=== PATIENT | female | born 1985 | race Caucasian/White ===

== ENCOUNTER 2017-05-16 16:12 | Emergency (ER) | payer BC ==
[2017-05-16 17:18] VITALS: BMI 21.2
[2017-05-16] MEDS ORDERED: Lactated Ringer's 1,000 ML IV SCH (17:20)
[2017-05-16 17:57] LABS: BASO % 0.1 % (0.0-2.0); EOS % 0.3 % (0.0-4.0); LYMPH # 1.1 K/uL (1.0-4.3); MEAN PLATELET VOLUME 9.3 fl (7.2-11.7); MONO # 0.9 K/uL (0.0-0.8); MONO % 7.1 % (0.0-10.0); NEUT # 10.1 K/uL (1.8-7.0); NEUT % 83.5 % (50.0-75.0); PLATELET COUNT 176 K/uL (130-400); RED CELL DISTRIBUTION WIDTH 12.7 % (11.5-14.5)
[2017-05-16 18:02] LABS: ALB/GLOB RATIO 1.1 (1.0-2.1); ALKALINE PHOSPHATASE 93 U/L (38-126); ALT/SGPT 21 U/L (9-52); AST/SGOT 21 U/L (14-36); BILIRUBIN,TOTAL 0.3 mg/dl (0.2-1.3); BLOOD UREA NITROGEN 5 mg/dl (7-17); CALCIUM 9.2 mg/dL (8.4-10.2); CARBON DIOXIDE 20 mmol/L (22-30); CHLORIDE 103 mmol/L (98-107); GFR AFRICAN-AMERICAN > 60; GLUCOSE,RANDOM 104 mg/dL (65-105); POTASSIUM 3.6 MMOL/L (3.6-5.0); SODIUM 135 mmol/l (132-148); TOTAL PROTEIN 7.5 G/DL (6.3-8.2)
[2017-05-16 19:30] LABS: RBC URINE 2 /hpf (0-3); URINE BACTERIA RARE (<OCC); URINE BILIRUBIN NEGATIVE (NEGATIVE); URINE BLOOD LARGE (NEGATIVE); URINE COLOR YELLOW (YELLOW); URINE GLUCOSE (UA) NEG (Normal); URINE KETONE NEGATIVE (NEGATIVE); URINE LEUKOCYTE ESTERASE LARGE Leu/uL (Negative); URINE PROTEIN 30 mg/dL (NEGATIVE); URINE UROBILINOGEN 0.2-1.0 mg/dL (0.2-1.0); WBC URINE 29 /hpf (0-5)
--- NOTE | 2017-05-16 20:10 | US ---
EXAM: US , Transvaginal CLINICAL HISTORY: 31 years old, female; Signs and symptoms; Lmp or gestational age (in weeks): 28 weeks & 2d; Other: Fever; ; Additional info: Contractions at 28+ wks TECHNIQUE: Real-time transvaginal obstetrical ultrasound of the maternal pelvis and a first trimester with image documentation. Transvaginal imaging was used for better evaluation of the fetus and adnexa. COMPARISON: No relevant prior studies available. FINDINGS: Evaluation of the pelvis reveals a single intrauterine with a breech presentation. The placenta is anterior fundal and free of the cervical os. The cervix measures 5.8 cm in length and is closed. measurements correspond to an estimated gestational age of 28 weeks 2 days. cardiac activity is identified with a heart rate of 150 beats per minute. IMPRESSION: Limited study of single live IUP as above.
[2017-05-16 20:37] LABS: NEUTROPHIL 92 % (42-75); TOTAL CELLS COUNTED 100
[2017-05-16 20:38] LABS: LARGE PLATELETS PRESENT
--- NOTE | 2017-05-16 20:44 | OBHP ---
Datetime: 05/16/2017 18:04 IP Adm Impression: , intrauterine IP Admit Plan: Observation/Evaluation Admit Comment, IP Provider: 31 yo G1 at 28+6 wks w/ EDC 08/02/2017, reports that she has had a low g rade fever since Wednesday, "turned into a cough and cold," went to 101.8 this am. Pt received her pre care w/ Dr. Bermudez. Pt reports that her temperature was 101.7 in ED today. Pt also c/o low back pain since this am, also reports heaviness in abdomen today. Pt denies VB and LOF, reports FM. Pt also reports freq urination, tingling w/ urination. PMH: Healthy PSH: Partial thyroidectomy for cyst on thyroid All: ear drops -> rashes Meds: PNVs [place] Hand hx: regular, no STDs, no abn paps Soc hx: Pt denies tobacco, alcohol, and illicit drug use Fam hx: M-DM, GDM, HTN , cholesterol, needed a cerclage M aunts- had premature babies PE: Gen'l pt appears comfortable in stretcher, non-toxic Abd: soft, NT, gravid Ext: NT Spec: FFN done VE: closed/ long/ -3 A/P: 31 yo G1 at 28+6 wks w/ fever, recent cough and cold sx, NST reactive Pt given IVF, labs drawn, Ua and cx sent CBC, CMP nl. Ua w/ blood (collected after vaginal exam ). Urine cx sent. U/s: CL 5.8cm, closed- FFN discarded Pt feeling better after receiving 2 liters of LR. Pt discharged home w/ PTL precautions. Pt told to go to the ED or f/u w/ APPLICATION SUPPORT TECHNICIAN for cough and cold. Extremities - PN: Normal Abdomen - PN: Normal Back - PN: Normal Neurologic - PN: Normal General - PN: Normal FHR - Baseline A Provider: 150 Membranes, Provider: Intact Contraction Comments Provider: irregular EGA AdmitDate IP: 28.6 Vital Signs Provider: Reviewed IP Chief Complaint: Maternal discomfort NICHD Variability Prov Fetus A: Moderate 6-25bpm NICHD Accel Fetus A IP Provider: 10X10 FHR Category Provider Fetus A: Category I NICHD Decel Fetus A IP Provider: None Dilatation, Provider: 0 Effacement, Provider: 0 Station, Provider: -3 Genitourinary Exam: Normal
--- NOTE | 2017-05-16 20:47 | OBDCSUM ---
Datetime: 05/16/2017 20:33 Discharged to, Provider: Home Follow up at, Provider: Vikram eBrmudez Disch Instr Activity: Normal activity Disch Instr Diet: Regular Discharge Time: 05/16/2017 20:34 Follow up in weeks, Provider: 4 days Disch Referrals: None Disch Activity Restrictions: No exercising; No lifting; No driving; No sexual activity; Nothing in v agina - [place], tampons, douche Discharge Diagnosis Prov Other: contractions at 28+6 wks
[2017-05-17 04:40] VITALS: BP 104/67; PULSE 93; RESP 16; TEMP 99.9; O2SAT 100
== END 2017-05-16 20:40 | disposition home or self-care (01) ==
LOC: H.EROB2 16:12 → H.EROB 17:09 → H.EROB2 20:40
DX: O47.03 False labor before 37 completed weeks of gestation, third trimester (principal); Z3A.28 28 weeks gestation of pregnancy
CPT/HCPCS: 76817; 80053; 81003; 85025; 87086; 99284; J7120

== ENCOUNTER 2017-05-18 15:15 | Emergency (ER) | payer BC ==
[2017-05-18 15:56] VITALS: BMI 24.7
[2017-05-18 17:44] LABS: URINE BACTERIA FEW (<OCC); URINE BILIRUBIN NEGATIVE (NEGATIVE); URINE BLOOD LARGE (NEGATIVE); URINE COLOR YELLOW (YELLOW); URINE GLUCOSE (UA) NEG (Normal); URINE KETONE NEGATIVE (NEGATIVE); URINE LEUKOCYTE ESTERASE LARGE Leu/uL (Negative); URINE PROTEIN 100 mg/dL (NEGATIVE); URINE UROBILINOGEN 0.2-1.0 mg/dL (0.2-1.0)
[2017-05-18 17:49] LABS: WBC URINE 43 /hpf (0-5)
[2017-05-18 17:50] LABS: RBC URINE 35 /hpf (0-3)
--- NOTE | 2017-05-18 19:08 | US ---
PROCEDURE: Ultrasound of the Kidneys HISTORY: Hematuria. Twenty-nine weeks COMPARISON: None available. TECHNIQUE: Sonogram of the kidneys. FINDINGS: RIGHT KIDNEY: Measures: 4.1 x 5.3 x 11.4 cm. Normal in size, contour and echogenicity. Mild-moderate hydronephrosis. LEFT KIDNEY: Measures: 3.4 x 4.4 x 10.1 cm. Normal in size, contour and echogenicity. No stone, solid mass lesion or hydronephrosis visualized. OTHER FINDINGS: None. IMPRESSION: Unilateral hydronephrosis right side only. This would be categorized as mild and consistent with 3rd term .
[2017-05-18 23:13] VITALS: PULSE 83; TEMP 99.1
--- NOTE | 2017-05-19 00:43 | OBHP ---
Datetime: 05/18/2017 16:01 IP Adm Impression: , intrauterine ; No Active Labor; Intact Membranes IP Admit Plan: Observation/Evaluation Admit Comment, IP Provider: 31yo IUP at 29w c/o abd heaviness x 1d...some back pain (lumabr/sac ral - muscular)...subjective feeeling of fever (not measured). No SROM. +FM. No CTX. No VB PNC: CP Dr Bermudez - chart rev'd PMH: denies PSH: Thyroid surgery Allergy ear drops PSoH: denies smoking; ETOH drugs A: IUP at 29w abd pain / threatened PTL ?UTI PLAN: Chekc UA FFN; will give Tylenol Pelvic Type - PN: Adequate Extremities - PN: Normal Abdomen - PN: Normal Back - PN: Normal Breast - PN: Not Done Lungs - PN: Normal Heart - PN: Normal Thyroid - PN: Normal Neurologic - PN: Normal HEENT - PN: Normal General - PN: Normal FHR - Baseline A Provider: 150 Membranes, Provider: Intact Comments, ACOG Physical Exam: No CVA tenderness ROS: General: no weakness; no fatigue HEENT: no WOODY; no visual dist CV: no palpitations; no no CP GI: no N/V no diarhea : some F/no U/+ D MS: No joint pain Pool Provider: Negative IP Hx Assessment: The History has been Reviewed and is Current EGA AdmitDate IP: 29.1 IP Chief Complaint: Maternal discomfort NICHD Variability Prov Fetus A: Moderate 6-25bpm NICHD Accel Fetus A IP Provider: 15X15 FHR Category Provider Fetus A: Category I NICHD Decel Fetus A IP Provider: None Dilatation, Provider: 0 Effacement, Provider: 0 Genitourinary Exam: Normal DTRs - PN: Normal
--- NOTE | 2017-05-19 00:45 | OBDCSUM ---
Datetime: 05/18/2017 19:01 Discharged to, Provider: Home Follow up at, Provider: Dr. Bermudez Disch Instr Activity: Normal activity Disch Instr Diet: Regular Discharge Diagnosis, Provider: False Labor - Undelivered Discharge Time: 05/18/2017 19:02 Follow up in weeks, Provider: as scheduled Disch Referrals: None Discharge Comment, Provider: UA + urine culture done...will give Cephalexin 500mg po TID x 7d; FFN n eg
== END 2017-05-18 19:12 | disposition home or self-care (01) ==
LOC: H.EROB2 15:15
DX: O47.03 False labor before 37 completed weeks of gestation, third trimester (principal); Z3A.29 29 weeks gestation of pregnancy

== ENCOUNTER 2017-08-09 14:53 | Inpatient (IN) | payer BC, OTHER ==
--- NOTE | 2017-08-09 16:22 | OBHP ---
Datetime: 08/09/2017 16:13 IP Adm Impression: Term, intrauterine ; Active labor IP Admit Plan: Admit to unit; Initiate labor protocol Admit Comment, IP Provider: 32yo with IUP at 41wks, reports here c/o intermittent contraction p ain most of which is felt on the back. She denies VB or LOF and feels good movement. She report s passing mucus the quantity of which have increased for the past [address] Bermudez. Pt had been schedued for IOL this evening. [place]- Q 3-5 FHR- Category 1, CX- 2-50/-2, Vtx felt. GBS- negative on the records. Assessment: IUP at 41 weeks Early Labor. Plan: Admit to LND Observe for the progress of labor. Dr Bermudez Notified. Pelvic Type - PN: Adequate Extremities - PN: Normal Abdomen - PN: Normal Back - PN: Normal Breast - PN: Normal Lungs - PN: Normal Heart - PN: Normal Thyroid - PN: Normal Neurologic - PN: Normal HEENT - PN: Normal General - PN: Normal Presentation-Admit: Vertex FHR - Baseline A Provider: 130s Membranes, Provider: Intact Contraction Comments Provider: Q 3-5 Comments, ACOG Physical Exam: Abd: Soft, NT, BS present Gestation - Est Wks by US: 41.0 EGA AdmitDate IP: 41.0 IP Chief Complaint: Uterine contractions; Maternal discomfort NICHD Variability Prov Fetus A: Minimal - Undetectable to <5bpm NICHD Accel Fetus A IP Provider: 15X15 FHR Category Provider Fetus A: Category I NICHD Decel Fetus A IP Provider: None Dilatation, Provider: 2-3 Effacement, Provider: 50 Station, Provider: -2 Genitourinary Exam: Normal DTRs - PN: Normal
[2017-08-09 16:30] VITALS: BMI 22.5
[2017-08-09] MEDS ORDERED: Lactated Ringer's 1,000 ML IV SCH (16:30)
--- NOTE | 2017-08-09 16:37 | OBADHP ---
Datetime: 08/09/2017 16:13 Admit Comment, IP Provider: 32yo with IUP at 41wks, reports here c/o intermittent contraction p ain most of which is felt on the back. She denies VB or LOF and feels good movement. She report s passing mucus the quantity of which have increased for the past [address] Bermudez. Pt had been schedued for IOL this evening. [place]- Q 3-5 FHR- Category 1, CX- 2-/50/-2, Vtx felt. GBS- negative on the records. Assessment: IUP at 41 weeks Early Labor. Plan: Admit to LND Observe for the progress of labor. Dr Gamble Notified. Pelvic Type - PN: Adequate Extremities - PN: Normal Abdomen - PN: Normal Back - PN: Normal Breast - PN: Normal Lungs - PN: Normal Heart - PN: Normal Thyroid - PN: Normal Neurologic - PN: Normal HEENT - PN: Normal General - PN: Normal Presentation-Admit: Vertex FHR - Baseline A Provider: 130s Membranes, Provider: Intact Contraction Comments Provider: Q 3-5 Comments, ACOG Physical Exam: Abd: Soft, NT, BS present Gestation - Est Wks by US: 41.0 IP Chief Complaint: Uterine contractions; Maternal discomfort NICHD Variability Prov Fetus A: Minimal - Undetectable to <5bpm NICHD Accel Fetus A IP Provider: 15X15 FHR Category Provider Fetus A: Category I NICHD Decel Fetus A IP Provider: None Dilatation, Provider: 2-3 Effacement, Provider: 50 Station, Provider: -2 Genitourinary Exam: Normal DTRs - PN: Normal EGA AdmitDate IP: 41.0 IP Adm Impression: Term, intrauterine ; Active labor IP Admit Plan: Admit to unit; Initiate labor protocol Datetime: 05/18/2017 16:01 Pool Provider: Negative IP Hx Assessment: The History has been Reviewed and is Current Datetime: 05/16/2017 18:04 Vital Signs Provider: Reviewed
[2017-08-09 18:03] LABS: BASO % 0.3 % (0.0-2.0); EOS # 0.6 K/uL (0.0-0.7); EOS % 5.4 % (0.0-4.0); HEMATOCRIT 38.7 % (34.0-47.0); LYMPH # 1.8 K/uL (1.0-4.3); LYMPH % 16.2 % (20.0-40.0); MEAN CELL VOLUME 93.9 fl (81.0-99.0); MEAN CORPUSCULAR HEMOGLOBIN 32.3 pg (27.0-31.0); MEAN CORPUSCULAR HGB CONC 34.4 g/dL (33.0-37.0); MEAN PLATELET VOLUME 10.1 fl (7.2-11.7); MONO # 0.6 K/uL (0.0-0.8); MONO % 5.6 % (0.0-10.0); NEUT # 7.9 K/uL (1.8-7.0); NEUT % 72.5 % (50.0-75.0); RED CELL DISTRIBUTION WIDTH 12.7 % (11.5-14.5); WHITE BLOOD COUNT 10.9 K/uL (4.8-10.8)
[2017-08-09 19:46] LABS: URINE BACTERIA RARE (<OCC); URINE BILIRUBIN NEGATIVE (NEGATIVE); URINE BLOOD MODERATE (NEGATIVE); URINE COLOR YELLOW (YELLOW); URINE GLUCOSE (UA) NEG (Normal); URINE KETONE TRACE mg/dL (NEGATIVE); URINE LEUKOCYTE ESTERASE NEG Leu/uL (Negative); URINE PROTEIN NEGATIVE (NEGATIVE); URINE UROBILINOGEN 0.2-1.0 mg/dL (0.2-1.0); WBC URINE 1 /hpf (0-5)
[2017-08-09 20:17] LABS: RBC URINE 13 /hpf (0-3)
[2017-08-10] MEDS ORDERED: Fentanyl/Bupivacaine HCl 250 ML EPI ONE (00:09)
[2017-08-10] MEDS ORDERED: Bupivacaine HCl 0.25% PF (10 ml) Inj ONE ×3 (02:05→05:43)
[2017-08-10] MEDS: Lactated Ringer's 1,000 ML IV SCH ×2 (08:18→08:34)
[2017-08-10] MEDS ORDERED: Oxytocin 10 Units/ml Inj ONE (08:47)
[2017-08-10] MEDS ORDERED: Oxytocin 30 UNITS in Sodium Chloride 0.9% 500 ML IV ONE (08:54)
[2017-08-10] MEDS ORDERED: Lidocaine 1% Inj (20ml) ONE (09:00)
[2017-08-10 09:23] VITALS: TEMP 98.3; O2SAT 100
--- NOTE | 2017-08-10 13:04 | OBDS ---
MATERNAL INFORMATION Delivery Anesthesia: Epidural Provider Comments: Pt progressed and pushed to deliver a viable female infant through clear fluid w/ terminal meconium at 12:02 pm. Double nuchal cord reduced. Apgars 9 and 9. Wt 6#5.2, 2870 gms. I nfant placed on mother's abdomen. Cord clamped and cut. Cord blood collected. Placenta delivered s pontaenously intact w/ a 3vc at 12:06 pm. Second degree tear repaired w/ 0-v, 2-0 rapide and 3-0v. Rectum intact. Packing, soaked in ice water, placed in vagina. Moran placed in bladder. Pt and baby tolerated the procedure well. EBL 300 mL LABOR SUMMARY EDC: 08/02/2017 00:00 No. Babies in Womb: 1 Attempted: No Labor Anesthesia: Epidural LABOR INFORMATION Onset of Labor: 08/10/2017 04:15 Group B Beta Strep: Negative MEMBRANES Membranes Rupture Method: Artificial Amniotic Fluid Color: Clear Amniotic Fluid Amount: Small
[2017-08-10] MEDS ORDERED: Oxycodone/Acetaminophen 5/325 mg Tab PO PRN ×2 (13:06→15:38)
[2017-08-10] MEDS ORDERED: Benzocaine/Menthol SPRAY TOP PRN (13:06)
[2017-08-11 05:41] LABS: BASO % 0.2 % (0.0-2.0); EOS % 6.6 % (0.0-4.0); HEMATOCRIT 31.2 % (34.0-47.0); LYMPH # 1.6 K/uL (1.0-4.3); LYMPH % 10.6 % (20.0-40.0); MEAN CELL VOLUME 94.2 fl (81.0-99.0); MEAN CORPUSCULAR HEMOGLOBIN 31.6 pg (27.0-31.0); MEAN CORPUSCULAR HGB CONC 33.6 g/dL (33.0-37.0); MEAN PLATELET VOLUME 9.3 fl (7.2-11.7); MONO # 0.6 K/uL (0.0-0.8); NEUT # 12.2 K/uL (1.8-7.0); NEUT % 78.6 % (50.0-75.0); NRBC % 0.1 % (0.0-0.0); RED CELL DISTRIBUTION WIDTH 13.2 % (11.5-14.5); WHITE BLOOD COUNT 15.5 K/uL (4.8-10.8)
--- NOTE | 2017-08-11 08:18 | OBPPN ---
Datetime: 08/11/2017 08:14 PP Pain Prov: Within normal limits PP Nausea Prov: Denies PP Abdomen/Uterus Prov: Normal PP Lochia Prov: Normal PP Extremities Prov: Normal PP Progress Prov: Normal PP Impression Prov: Normal progression PP Plan Prov: Continue present management PP Progress Note Prov: PPD 1 s/p , packing removed this am, bottlr feeding, plans to breast feed. Moran to be removed this am Vital Signs Provider PP: Reviewed; Within Normal Limits
[2017-08-11] MEDS: Benzocaine/Menthol SPRAY TOP PRN (09:46)
[2017-08-11] MEDS ORDERED: Measles, Mumps, and Rubella 0.5 ML VIAL SC ONE (20:38)
[2017-08-12] MEDS: Benzocaine/Menthol SPRAY TOP PRN (07:50)
--- NOTE | 2017-08-12 07:56 | NBDCN ---
Datetime: 08/12/2017 07:53 Nsy Prov Gen Appearance: Within Normal Limits Nsy Prov Skin: Within Normal Limits Nsy Prov Neuro: Normal Tone; [place]; Grasp; Root; Suck Nsy Prov Musculoskeletal: Within Normal Limits; Full Range of Motion; Spontaneous Movement All Extre mities; Intact Clavicles; Clavicles without Crepitus; Gluteal Folds Symmetrical; Spine Within Normal Limits; No Sacral Dimple/Cyst Nsy Prov Head: Normal Fontanelles; Normocephalic; Sutures WNL Nsy Prov EENT: Mouth Within Normal Limits; Ears Within Normal Limits; Eyes Within Normal Limits; Eye s Red Reflex Bilaterally; Nose Within Normal Limits; Face Within Normal Limits Nsy Prov Cardiovascular: Within Normal Limits; Normal Pulses Nsy Prov Respiratory: Within Normal Limits Nsy Prov GI: Within Normal Limits; Soft; Normal Liver; Non Palpable Spleen; Patent Anus Nsy Prov Umbilicus: Within Normal Limits; Three Vessel Cord Nsy Prov : Normal Female Genitalia Nsy Prov Discharge: Discharge Home Today; Healthy Term [place]; Vital Signs Appropriate; Bonding Charlie ropriately Nsy Prov Disch Comments: Well baby girl. Follow up in Weeks NB: 1 Week Follow up Appt with NB: Office Datetime: 08/09/2017 17:50 Blood Type: B POS Datetime: 05/18/2017 19:01 Disch Follow Up With: Dr. Bermudez Datetime: 05/16/2017 17:50 Lab, Bilirubin Total Serum: 0.3 Peak Bilirubin Total Serum: 0.3
[2017-08-12 19:10] VITALS: BP 103/65; PULSE 74; RESP 20
--- NOTE | 2017-08-13 07:23 | OBPPN ---
Datetime: 08/12/2017 08:55 PP Pain Prov: Within normal limits PP Nausea Prov: Denies PP Flatus Prov: Yes PP BM Prov: Yes PP Breasts Prov: Normal PP Heart Prov: Normal PP Lungs Prov: Normal PP Abdomen/Uterus Prov: Normal PP Lochia Prov: Normal PP Vulva/Perineum Prov: Normal PP CVA Tenderness Prov: Normal PP Extremities Prov: Normal PP C/S Incision Prov: Not Applicable PP Progress Prov: Normal PP Impression Prov: Normal progression PP Plan Prov: Continue present management PP Progress Note Prov: PPD 2 Dischagre home Follwo up in 6w Vital Signs Provider PP: Reviewed; Within Normal Limits
== END 2017-08-12 14:30 | disposition home or self-care (01) | DRG 775 ==
LOC: H.EROB2 14:53 → H.L&D 15:45 → H.EROB2 16:35 → H.OB/GYN 08-10 16:45
PROVIDERS: ADMIT Obstetrics & Gynecology; ATTEND Obstetrics & Gynecology
PROC: 0KQM0ZZ Repair Perineum Muscle, Open Approach (ICD-10-PCS; principal; 2017-08-09)
PROC: 10E0XZZ Delivery of Products of Conception, External Approach (ICD-10-PCS; 2017-08-09)
PROC: 4A1HXCZ Monitoring of Products of Conception, Cardiac Rate, External Approach (ICD-10-PCS; 2017-08-09)
DX: O48.0 Post-term pregnancy (principal); O70.1 Second degree perineal laceration during delivery; Z37.0 Single live birth; O77.0 Labor and delivery complicated by meconium in amniotic fluid; Z3A.41 41 weeks gestation of pregnancy